=== PATIENT | female | born 1990 | race Caucasian/White ===

== ENCOUNTER → 2020-11-19 15:36 | Outpatient (BNVA) | payer SELFPAY | PROVIDERS: Family Provider Nurse Practitioner; Visit Provider Nurse Practitioner Family | DX: R39.9 Unspecified symptoms and signs involving the genitourinary system (principal); N30.00 Acute cystitis without hematuria | CPT/HCPCS: 81000 ==

== ENCOUNTER 2021-04-07 19:13 | Inpatient (IN) | payer SELFPAY ==
[2021-04-07 19:19] VITALS: BP 92/67; PULSE 114; RESP 18; TEMP 37.1; O2SAT 98; BMI 15.7
--- NOTE | 2021-04-07 20:37 | CTR_ITS ---
PROCEDURE INFORMATION: Exam: CT Abdomen And Pelvis With Contrast Exam date and time: 04/07/2021 8:37 PM Age: 30 years old Clinical indication: Abdominal pain; Generalized; Patient HX: Diffuse abd pain x 2 days; Additional info: Abdominal pain x 2 days TECHNIQUE: Imaging protocol: Computed tomography of the abdomen and pelvis with contrast. Radiation optimization: All CT scans at this facility use at least one of these dose optimization techniques: automated exposure control; mA and/or kV adjustment per patient size (includes targeted exams where dose is matched to clinical indication); or iterative reconstruction. Contrast material: OMNI 300; Contrast volume: 75 ml; Contrast route: INTRAVENOUS (IV); COMPARISON: No relevant prior studies available. RADIATION DOSE METRICS: Total DLP (mGy-cm): 699.34 FINDINGS: Lungs: The lung bases are clear. Liver: Unremarkable. Gallbladder and bile ducts: No definite gallbladder abnormality by CT. No biliary tree dilation. Pancreas: Unremarkable. Spleen: Unremarkable. Adrenal glands: Unremarkable. Kidneys and ureters: No hydronephrosis of either kidney. No visible ureteral calculus. No perinephric fluid. The kidneys enhance homogeneously. Stomach and bowel: There is dilation of much of the small bowel. Small bowel is dilated up to about 3 cm in diameter. The appearance raises suspicion for a distal small bowel obstruction, although an adynamic ileus is not excluded. Clinical correlation will be helpful. Possibility of mild mucosal/wall thickening involving some distal small bowel loops. While this could well be a transient appearance, this might also represent some type of gastroenteritis, inflammatory bowel disease, or other inflammatory bowel process/enteritis. Please correlate clinically. The stomach appears somewhat distended at the time of scanning. Please correlate clinically. There are no CT findings to strongly suggest diverticulitis. Appendix: The appendix is possibly identified, and there are no strongly suspicious findings for appendicitis. No definite pericecal inflammatory changes are seen. Intraperitoneal space: No free intraperitoneal air, or ascites. Vasculature: No evidence for abdominal aortic aneurysm. Lymph nodes: No retroperitoneal adenopathy. Urinary bladder: Possibly some mild diffuse urinary bladder wall thickening. However, evaluation is limited, as the bladder is almost empty. While nonspecific, this could indicate evidence for cystitis. Please correlate clinically. Reproductive: Essentially unremarkable for age. Bones/joints: No significant acute finding. Soft tissues: No significant acute finding. CT/CT abdomen pelvis w con* [id number] IMPRESSION: 1. Findings suspicious for possible small bowel obstruction, see above details/ discussion. 2. Possible mild mucosa/wall thickening in some small bowel loops, see above. 3. Somewhat distended stomach. 4. Possible mild urinary bladder wall thickening, see above. 5. No findings to suggest appendicitis. 6. Other findings discussed above. Radiation Dose CTDIVOL = (mGy): DLP = 699.34 (mGy-cm)
--- NOTE | 2021-04-07 20:38 | ED_ITS ---
Documented by User: LAUREN Vaz 04/07/21 20:39 HPI - Abdominal Pain General: Chief Complaint: ER Hold Stated Complaint: ABD Pain\N\V Ann-Marie Time Seen by Provider: 04/07/21 19:20 History of Present Illness: HPI narrative: Patient states she has had severe abdominal pain since yesterday. Said she had a pretty difficult menstrual cycle in the last week but bleeding stopped and she thought that this pain would go away. Patient says pain goes across her lower abdomen into her left and right flank. Has been nauseated. Denies fever has had some chills. MD elicited complaint: abdominal pain Pertinent past history: other (Ruptured ovarian cyst) Onset (ago): day(s) Pain Consistency: constant Location: Diffuse Severity: severe Quality: cramping and aching Radiation: bilateral flank Relieving factors: nothing Associated Symptoms: Reports diarrhea and nausea; Denies chills and fever(s) Related Data: Date of Last Menstrual Period: 11/11/20 Review of Systems Const: Denies: fever(s), chills or body aches Eyes: Denies: change in vision or blurry vision ENMT: Denies: throat pain or nasal congestion Card: Denies: chest pain or dyspnea on exertion Resp: Denies: dyspnea, productive cough or non-productive cough GI: Reports: abdominal pain, nausea and diarrhea Musc: Denies: extremity pain Skin/Breast: Denies: rash Neuro: Denies: headache(s) Psych: Denies: anxiety or depression Kana/Lymph: Denies: easy bruising [facility] Female Reproductive History: Date of last menstrual period: 11/11/20 Physical Exam Const: COMMON NORMALS: no acute distress, average body habitus and patient oriented x3 HENMT: COMMON NORMALS: normocephalic HEAD & SCALP: normal to inspection and normocephalic FACE & SINUS: normal facial exam Eye: COMMON NORMALS: conjunctivae normal GENERAL EYE: appearance normal, both eyes and all related structures CONJUNCTIVA: Yes conjunctivae normal Neck/C-Spine: COMMON NORMALS: no JVD Chest: COMMONS NORMALS: normal inspection of the chest Resp: COMMON NORMALS: normal respiratory effort and clear to auscultation bilaterally AUSCULTATION: clear to auscultation bilaterally Cardio: COMMON NORMALS: no JVD, regular rate and regular rhythm RATE: regular rate RHYTHM: regular rhythm GI: AUSCULTATION: Yes Hypoactive bowel sounds present PALPATION: Yes Tenderness to palpation present (GI) Details: LLQ and RLQ and Yes Guarding due to palpation present (GI) Extremity: COMMON NORMALS: normal to inspection and full ROM Neuro: COMMON NORMALS: patient oriented x3 Course Vital Signs: Vital signs: Vital Signs Temperature 98.2 F 04/09/21 13:56 Pulse Rate 63 04/09/21 13:56 Respiratory Rate 18 04/09/21 13:56 Blood Pressure 110/72 04/09/21 13:56 Pulse Oximetry 100 04/09/21 13:56 MDM - Abdominal Pain Lab Data: Labs: Lab Results 04/07/21 04/07/21 04/07/21 00:22 00:22 20:55 WBC 31.5 10^3/uL H* 1 0^3/uL (4.0-10.0) RBC 4.87 10^6/uL 10^6 /uL (4.1-5.3) Hgb 15.3 g/dL g/dL (11.5-15.3) Hct 45.5 % % (37.0-47.0) MCV 93.4 fl fl (81-99) MCH 31.4 pg pg (28.0-34.0) MCHC 33.6 g/dL g/dL (30.0-36.0) RDW 12.5 % % (12.1-15.1) Plt Count 320 10^3/cmm 10^3 /cmm (130-400) MPV 11.4 fL H fL (7.4-10.4) Neut % (Auto) 89.1 % % Lymph % (Auto) 5.5 % % [facility] % (Auto) 3.9 % % Eos % (Auto) 0.3 % % Baso % (Auto) 0.3 % % Neut # (Auto) 28.06 10^3/uL H 1 0^3/uL (1.8-7.7) Lymph # (Auto) 1.7 10^3/uL 10^3/ uL (0.8-4.8) [facility] # (Auto) 1.2 10^3/uL H 10^ 3/uL (0.2-0.9) Eos # (Auto) 0.1 10^3/uL 10^3/ uL (0.0-0.8) Baso # (Auto) 0.1 10^3/uL 10^3/ uL (0.0-0.1) Nucleated RBC % (a uto) 0 % % Nucleated RBCs # 0.0 /100WBC /100W BC PT INR APTT Sodium Potassium Chloride Carbon Dioxide Anion Gap BUN Creatinine GFR Calculation Glucose Calculated Osmolal ity Lactic Acid 1.2 mmol/L mmol/L (0.5-2.2) Lactate Calcium Phosphorus Magnesium Total Bilirubin AST ALT Alkaline Phosphata se C-Reactive Protein Total Protein Albumin Globulin Lipase Procalcitonin 2.94 ng/mL H ng/m L (0-0.5) HCG, Qual Urine Color Urine Appearance Urine pH Ur Specific Gravit y Urine Protein Urine Glucose (UA) Urine Ketones Urine Blood Urine Nitrate Urine Bilirubin Urine Urobilinogen Ur Leukocyte Varsha ase Urine RBC Urine WBC Ur Squamous Epith Cells Amorphous Sediment Urine Bacteria 04/07/21 04/07/21 04/07/21 20:55 20:55 20:55 WBC RBC Hgb Hct MCV MCH MCHC RDW Plt Count MPV Neut % (Auto) Lymph % (Auto) [facility] % (Auto) Eos % (Auto) Baso % (Auto) Neut # (Auto) Lymph # (Auto) [facility] # (Auto) Eos # (Auto) Baso # (Auto) Nucleated RBC % (a uto) Nucleated RBCs # PT INR APTT Sodium 133 mmol/L L mmol /L (136-145) Potassium 3.9 mmol/L mmol/L (3.5-5.1) Chloride 95 mmol/L L mmol/ L (98-107) Carbon Dioxide 20 mmol/L L mmol/ L (22-29) Anion Gap 21.9 H (5-19) BUN 30 mg/dL H mg/dL (6-20) Creatinine 2.0 mg/dL H mg/dL (0.5-0.9) GFR Calculation 29.3 mL/min L mL/ min (90-130) Glucose 95 mg/dL mg/dL (65-115) Calculated Osmolal ity 282 mOsm/kg L mOs m/kg (285-295) Lactic Acid Lactate 1.4 mmol/L mmol/L (0.5-2.2) Calcium 10.0 mg/dL mg/dL (8.5-10.5) Phosphorus Magnesium Total Bilirubin 0.2 mg/dL mg/dL (0.15-1.2) AST 11 U/L U/L (0-32) ALT 8 U/L U/L (0-33) Alkaline Phosphata se 86 IU/L IU/L (35-105) C-Reactive Protein 417.6 mg/L H mg/L (0.0-4.9) Total Protein 8.7 g/dL g/dL (6.6-8.7) Albumin 4.1 g/dL g/dL (3.5-5.2) Globulin 4.6 g/dL g/dL (1.3-4.6) Lipase 12 U/L L U/L (13-60) Procalcitonin HCG, Qual Negative (Negative) Urine Color Urine Appearance Urine pH Ur Specific Gravit y Urine Protein Urine Glucose (UA) Urine Ketones Urine Blood Urine Nitrate Urine Bilirubin Urine Urobilinogen Ur Leukocyte Varsha ase Urine RBC Urine WBC Ur Squamous Epith Cells Amorphous Sediment Urine Bacteria 04/07/21 04/08/21 04/08/21 21:16 03:46 03:46 WBC 21.5 10^3/uL H 10 ^3/uL (4.0-10.0) RBC 3.78 10^6/uL L 10 ^6/uL (4.1-5.3) Hgb 12.0 g/dL g/dL (11.5-15.3) Hct 35.9 % L % (37.0-47.0) MCV 95.0 fl fl (81-99) MCH 31.7 pg pg (28.0-34.0) MCHC 33.4 g/dL g/dL (30.0-36.0) RDW 12.5 % % (12.1-15.1) Plt Count 217 10^3/cmm D 1 0^3/cmm (130-400) MPV 10.9 fL H fL (7.4-10.4) Neut % (Auto) 85.4 % % Lymph % (Auto) 6.6 % % [facility] % (Auto) 5.5 % % Eos % (Auto) 1.3 % % Baso % (Auto) 0.2 % % Neut # (Auto) 18.40 10^3/uL H 1 0^3/uL (1.8-7.7) Lymph # (Auto) 1.4 10^3/uL 10^3/ uL (0.8-4.8) [facility] # (Auto) 1.2 10^3/uL H 10^ 3/uL (0.2-0.9) Eos # (Auto) 0.3 10^3/uL 10^3/ uL (0.0-0.8) Baso # (Auto) 0.0 10^3/uL 10^3/ uL (0.0-0.1) Nucleated RBC % (a uto) 0 % % Nucleated RBCs # 0.0 /100WBC /100W BC PT 14.80 SECONDS SEC ONDS (12.1-14.9) INR 1.13 (0.8-1.2) APTT 30.6 SECONDS SECO NDS (23.9-36.7) Sodium Potassium Chloride Carbon Dioxide Anion Gap BUN Creatinine GFR Calculation Glucose Calculated Osmolal ity Lactic Acid Lactate Calcium Phosphorus Magnesium Total Bilirubin AST ALT Alkaline Phosphata se C-Reactive Protein Total Protein Albumin Globulin Lipase Procalcitonin HCG, Qual Urine Color Yellow (Yellow) Urine Appearance Clear (CLEAR) Urine pH 5 (5-7) Ur Specific Gravit y 1.025 (1.005-1.030) Urine Protein Trace (Negative) Urine Glucose (UA) Trace H (Normal) Urine Ketones 1+ H (Negative) Urine Blood 2+ H (Negative) Urine Nitrate Negative (Negative) Urine Bilirubin 1+ H (Negative) Urine Urobilinogen Norm mg/dL mg/dL (Negative) Ur Leukocyte Varsha ase Trace H (Negative) Urine RBC 0-4 /hpf H /hpf (0-2) Urine WBC 15-25 /hpf H /hpf (0-5) Ur Squamous Epith Cells 10-15 /hpf H /hpf (0-5) Amorphous Sediment Not Reportable Urine Bacteria 2+ /hpf H /hpf (NONE) 04/08/21 03:46 WBC RBC Hgb Hct MCV MCH MCHC RDW Plt Count MPV Neut % (Auto) Lymph % (Auto) [facility] % (Auto) Eos % (Auto) Baso % (Auto) Neut # (Auto) Lymph # (Auto) [facility] # (Auto) Eos # (Auto) Baso # (Auto) Nucleated RBC % (a uto) Nucleated RBCs # PT INR APTT Sodium 135 mmol/L L mmol /L (136-145) Potassium 3.7 mmol/L mmol/L (3.5-5.1) Chloride 102 mmol/L mmol/L (98-107) Carbon Dioxide 21 mmol/L L mmol/ L (22-29) Anion Gap 15.7 (5-19) BUN 21 mg/dL H mg/dL (6-20) Creatinine 1.1 mg/dL H mg/dL (0.5-0.9) GFR Calculation 58.3 mL/min L mL/ min (90-130) Glucose 96 mg/dL mg/dL (65-115) Calculated Osmolal ity 283 mOsm/kg L mOs m/kg (285-295) Lactic Acid Lactate Calcium 8.0 mg/dL L mg/dL (8.5-10.5) Phosphorus 3.3 mg/dL mg/dL (2.5-4.5) Magnesium 1.8 mg/dL mg/dL (1.7-2.3) Total Bilirubin 0.2 mg/dL mg/dL (0.15-1.2) AST 7 U/L U/L (0-32) ALT < 5 U/L U/L (0-33) Alkaline Phosphata se 58 IU/L IU/L (35-105) C-Reactive Protein Total Protein 6.4 g/dL L D g/dL (6.6-8.7) Albumin 3.2 g/dL L g/dL (3.5-5.2) Globulin 3.2 g/dL g/dL (1.3-4.6) Lipase Procalcitonin HCG, Qual Urine Color Urine Appearance Urine pH Ur Specific Gravit y Urine Protein Urine Glucose (UA) Urine Ketones Urine Blood Urine Nitrate Urine Bilirubin Urine Urobilinogen Ur Leukocyte Varsha ase Urine RBC Urine WBC Ur Squamous Epith Cells Amorphous Sediment Urine Bacteria Discharge Plan Discharge Patient Disposition: Admitted As Inpatient Admit Provider: Reji Hayden Clinical Impression: Small bowel obstruction Condition: Stable Discharge Diet: Advance as tolerated Discharge Activity: Resume usual activity Sign Out Sign Out Data: Patient Sign Out occurred on 04/08/21 at 00:29. Patient's care was discussed, and care was transferred from to Mehdi Ramires MD. Coding Level of Care Code ED Apartment Rental Clerk for Chg Fwd Exam Comprehensive Documented by User: Mehdi Ramires MD 04/12/21 09:28 HPI - Abdominal Pain General: Chief Complaint: ER Hold Stated Complaint: ABD Pain\N\V Ann-Marie Time Seen by Provider: 04/07/21 19:20 Course Vital Signs: Vital signs: Vital Signs Temperature 98.2 F 04/09/21 13:56 Pulse Rate 63 04/09/21 13:56 Respiratory Rate 18 04/09/21 13:56 Blood Pressure 110/72 04/09/21 13:56 Pulse Oximetry 100 04/09/21 13:56 MDM - Abdominal Pain MDM Narrative: Medical decision making narrative: I discussed this case with Darvin Krishnan NP. I personally reevaluated the patient and agree as documented, I reviewed imaging and labs. I discussed the case with general surgery on-call, they were concerned regarding somewhat out of proportion leukocytosis and requested involvement of medicine team. Mehdi Ramires MD Emergency Medicine Lab Data: Labs: Lab Results 04/07/21 04/07/21 04/07/21 00:22 00:22 20:55 WBC 31.5 10^3/uL H* 1 0^3/uL (4.0-10.0) RBC 4.87 10^6/uL 10^6 /uL (4.1-5.3) Hgb 15.3 g/dL g/dL (11.5-15.3) Hct 45.5 % % (37.0-47.0) MCV 93.4 fl fl (81-99) MCH 31.4 pg pg (28.0-34.0) MCHC 33.6 g/dL g/dL (30.0-36.0) RDW 12.5 % % (12.1-15.1) Plt Count 320 10^3/cmm 10^3 /cmm (130-400) MPV 11.4 fL H fL (7.4-10.4) Neut % (Auto) 89.1 % % Lymph % (Auto) 5.5 % % [facility] % (Auto) 3.9 % % Eos % (Auto) 0.3 % % Baso % (Auto) 0.3 % % Neut # (Auto) 28.06 10^3/uL H 1 0^3/uL (1.8-7.7) Lymph # (Auto) 1.7 10^3/uL 10^3/ uL (0.8-4.8) [facility] # (Auto) 1.2 10^3/uL H 10^ 3/uL (0.2-0.9) Eos # (Auto) 0.1 10^3/uL 10^3/ uL (0.0-0.8) Baso # (Auto) 0.1 10^3/uL 10^3/ uL (0.0-0.1) Nucleated RBC % (a uto) 0 % % Nucleated RBCs # 0.0 /100WBC /100W BC PT INR APTT Sodium Potassium Chloride Carbon Dioxide Anion Gap BUN Creatinine GFR Calculation Glucose Calculated Osmolal ity Lactic Acid 1.2 mmol/L mmol/L (0.5-2.2) Lactate Calcium Phosphorus Magnesium Total Bilirubin AST ALT Alkaline Phosphata se C-Reactive Protein Total Protein Albumin Globulin Lipase Procalcitonin 2.94 ng/mL H ng/m L (0-0.5) HCG, Qual Urine Color Urine Appearance Urine pH Ur Specific Gravit y Urine Protein Urine Glucose (UA) Urine Ketones Urine Blood Urine Nitrate Urine Bilirubin Urine Urobilinogen Ur Leukocyte Varsha ase Urine RBC Urine WBC Ur Squamous Epith Cells Amorphous Sediment Urine Bacteria 04/07/21 04/07/21 04/07/21 20:55 20:55 20:55 WBC RBC Hgb Hct MCV MCH MCHC RDW Plt Count MPV Neut % (Auto) Lymph % (Auto) [facility] % (Auto) Eos % (Auto) Baso % (Auto) Neut # (Auto) Lymph # (Auto) [facility] # (Auto) Eos # (Auto) Baso # (Auto) Nucleated RBC % (a uto) Nucleated RBCs # PT INR APTT Sodium 133 mmol/L L mmol /L (136-145) Potassium 3.9 mmol/L mmol/L (3.5-5.1) Chloride 95 mmol/L L mmol/ L (98-107) Carbon Dioxide 20 mmol/L L mmol/ L (22-29) Anion Gap 21.9 H (5-19) BUN 30 mg/dL H mg/dL (6-20) Creatinine 2.0 mg/dL H mg/dL (0.5-0.9) GFR Calculation 29.3 mL/min L mL/ min (90-130) Glucose 95 mg/dL mg/dL (65-115) Calculated Osmolal ity 282 mOsm/kg L mOs m/kg (285-295) Lactic Acid Lactate 1.4 mmol/L mmol/L (0.5-2.2) Calcium 10.0 mg/dL mg/dL (8.5-10.5) Phosphorus Magnesium Total Bilirubin 0.2 mg/dL mg/dL (0.15-1.2) AST 11 U/L U/L (0-32) ALT 8 U/L U/L (0-33) Alkaline Phosphata se 86 IU/L IU/L (35-105) C-Reactive Protein 417.6 mg/L H mg/L (0.0-4.9) Total Protein 8.7 g/dL g/dL (6.6-8.7) Albumin 4.1 g/dL g/dL (3.5-5.2) Globulin 4.6 g/dL g/dL (1.3-4.6) Lipase 12 U/L L U/L (13-60) Procalcitonin HCG, Qual Negative (Negative) Urine Color Urine Appearance Urine pH Ur Specific Gravit y Urine Protein Urine Glucose (UA) Urine Ketones Urine Blood Urine Nitrate Urine Bilirubin Urine Urobilinogen Ur Leukocyte Varsha ase Urine RBC Urine WBC Ur Squamous Epith Cells Amorphous Sediment Urine Bacteria 04/07/21 04/08/21 04/08/21 21:16 03:46 03:46 WBC 21.5 10^3/uL H 10 ^3/uL (4.0-10.0) RBC 3.78 10^6/uL L 10 ^6/uL (4.1-5.3) Hgb 12.0 g/dL g/dL (11.5-15.3) Hct 35.9 % L % (37.0-47.0) MCV 95.0 fl fl (81-99) MCH 31.7 pg pg (28.0-34.0) MCHC 33.4 g/dL g/dL (30.0-36.0) RDW 12.5 % % (12.1-15.1) Plt Count 217 10^3/cmm D 1 0^3/cmm (130-400) MPV 10.9 fL H fL (7.4-10.4) Neut % (Auto) 85.4 % % Lymph % (Auto) 6.6 % % [facility] % (Auto) 5.5 % % Eos % (Auto) 1.3 % % Baso % (Auto) 0.2 % % Neut # (Auto) 18.40 10^3/uL H 1 0^3/uL (1.8-7.7) Lymph # (Auto) 1.4 10^3/uL 10^3/ uL (0.8-4.8) [facility] # (Auto) 1.2 10^3/uL H 10^ 3/uL (0.2-0.9) Eos # (Auto) 0.3 10^3/uL 10^3/ uL (0.0-0.8) Baso # (Auto) 0.0 10^3/uL 10^3/ uL (0.0-0.1) Nucleated RBC % (a uto) 0 % % Nucleated RBCs # 0.0 /100WBC /100W BC PT 14.80 SECONDS SEC ONDS (12.1-14.9) INR 1.13 (0.8-1.2) APTT 30.6 SECONDS SECO NDS (23.9-36.7) Sodium Potassium Chloride Carbon Dioxide Anion Gap BUN Creatinine GFR Calculation Glucose Calculated Osmolal ity Lactic Acid Lactate Calcium Phosphorus Magnesium Total Bilirubin AST ALT Alkaline Phosphata se C-Reactive Protein Total Protein Albumin Globulin Lipase Procalcitonin HCG, Qual Urine Color Yellow (Yellow) Urine Appearance Clear (CLEAR) Urine pH 5 (5-7) Ur Specific Gravit y 1.025 (1.005-1.030) Urine Protein Trace (Negative) Urine Glucose (UA) Trace H (Normal) Urine Ketones 1+ H (Negative) Urine Blood 2+ H (Negative) Urine Nitrate Negative (Negative) Urine Bilirubin 1+ H (Negative) Urine Urobilinogen Norm mg/dL mg/dL (Negative) Ur Leukocyte Varsha ase Trace H (Negative) Urine RBC 0-4 /hpf H /hpf (0-2) Urine WBC 15-25 /hpf H /hpf (0-5) Ur Squamous Epith Cells 10-15 /hpf H /hpf (0-5) Amorphous Sediment Not Reportable Urine Bacteria 2+ /hpf H /hpf (NONE) 04/08/21 03:46 WBC RBC Hgb Hct MCV MCH MCHC RDW Plt Count MPV Neut % (Auto) Lymph % (Auto) [facility] % (Auto) Eos % (Auto) Baso % (Auto) Neut # (Auto) Lymph # (Auto) [facility] # (Auto) Eos # (Auto) Baso # (Auto) Nucleated RBC % (a uto) Nucleated RBCs # PT INR APTT Sodium 135 mmol/L L mmol /L (136-145) Potassium 3.7 mmol/L mmol/L (3.5-5.1) Chloride 102 mmol/L mmol/L (98-107) Carbon Dioxide 21 mmol/L L mmol/ L (22-29) Anion Gap 15.7 (5-19) BUN 21 mg/dL H mg/dL (6-20) Creatinine 1.1 mg/dL H mg/dL (0.5-0.9) GFR Calculation 58.3 mL/min L mL/ min (90-130) Glucose 96 mg/dL mg/dL (65-115) Calculated Osmolal ity 283 mOsm/kg L mOs m/kg (285-295) Lactic Acid Lactate Calcium 8.0 mg/dL L mg/dL (8.5-10.5) Phosphorus 3.3 mg/dL mg/dL (2.5-4.5) Magnesium 1.8 mg/dL mg/dL (1.7-2.3) Total Bilirubin 0.2 mg/dL mg/dL (0.15-1.2) AST 7 U/L U/L (0-32) ALT < 5 U/L U/L (0-33) Alkaline Phosphata se 58 IU/L IU/L (35-105) C-Reactive Protein Total Protein 6.4 g/dL L D g/dL (6.6-8.7) Albumin 3.2 g/dL L g/dL (3.5-5.2) Globulin 3.2 g/dL g/dL (1.3-4.6) Lipase Procalcitonin HCG, Qual Urine Color Urine Appearance Urine pH Ur Specific Gravit y Urine Protein Urine Glucose (UA) Urine Ketones Urine Blood Urine Nitrate Urine Bilirubin Urine Urobilinogen Ur Leukocyte Varsha ase Urine RBC Urine WBC Ur Squamous Epith Cells Amorphous Sediment Urine Bacteria Discharge Plan Discharge Patient Disposition: Admitted As Inpatient Admit Provider: Reji Hayden Clinical Impression: Small bowel obstruction Condition: Stable Discharge Diet: Advance as tolerated Discharge Activity: Resume usual activity Sign Out Sign Out Data: Patient Sign Out occurred on 04/08/21 at 00:29. Patient's care was discussed, and care was transferred from to Mehdi Ramires MD. Coding Level of Care Code ED Apartment Rental Clerk for Chg Fwd Exam Comprehensive
[2021-04-07 20:48] VITALS: BP 110/79; PULSE 74; RESP 20; O2SAT 99
[2021-04-07 21:06] LABS: Basophils # 0.1 10^3/uL (0.0-0.1); Basophils % 0.3 %; Eosinophils # 0.1 10^3/uL (0.0-0.8); Eosinophils % 0.3 %; Hematocrit 45.5 % (37.0-47.0); Hemoglobin 15.3 g/dL (11.5-15.3); Lymphocytes # 1.7 10^3/uL (0.8-4.8); Lymphocytes % 5.5 %; Mean Corpuscular HGB Conc 33.6 g/dL (30.0-36.0); Mean Corpuscular Hemoglobin 31.4 pg (28.0-34.0); Mean Corpuscular Volume 93.4 fl (81-99); Mean Platelet Volume 11.4 fL (7.4-10.4); Monocytes # 1.2 10^3/uL (0.2-0.9); Monocytes % 3.9 %; Neutrophils # 28.06 10^3/uL (1.8-7.7); Neutrophils % 89.1 %; Nucleated Red Blood Cells % 0 %; Platelet Count 320 10^3/cmm (130-400); Red Blood Count 4.87 10^6/uL (4.1-5.3); Red Cell Distribution Width 12.5 % (12.1-15.1)
[2021-04-07 21:13] LABS: White Blood Count 31.5 10^3/uL (4.0-10.0)
[2021-04-07 21:28] LABS: HCG, Serum Qual Negative (Negative)
[2021-04-07 21:33] LABS: Alanine Aminotransferase 8 U/L (0-33); Albumin Level 4.1 g/dL (3.5-5.2); Alkaline Phosphatase 86 IU/L (35-105); Anion Gap 21.9 (5-19); Aspartate Amino Transferase 11 U/L (0-32); Blood Urea Nitrogen 30 mg/dL (6-20); Carbon Dioxide 20 mmol/L (22-29); Chloride 95 mmol/L (98-107); Creatinine Clr Calc Pharmacy 30.6303; Globulin 4.6 g/dL (1.3-4.6); Glomerular Filtration Rate 29.3 mL/min (90-130); Glucose 95 mg/dL (65-115); Lipase 12 U/L (13-60); Osmolality Calculated 282 mOsm/kg (285-295); Potassium 3.9 mmol/L (3.5-5.1); Sodium 133 mmol/L (136-145); Total Bilirubin 0.2 mg/dL (0.15-1.2); Total Protein 8.7 g/dL (6.6-8.7)
[2021-04-07 21:34] LABS: Lactate (Lactic Acid level) 1.4 mmol/L (0.5-2.2)
[2021-04-07] MEDS: iohexol 300 mg/mL 100 mL Btl IV (21:41)
[2021-04-07 21:51] LABS: C Reactive Protein 417.6 mg/L (0.0-4.9)
[2021-04-07] MEDS: ondansetron 2 mg/ML SDV 2 mL 4 MG IVP (22:08)
[2021-04-07] MEDS: morphine 4 mg/mL SDV 1 mL IVP (22:10)
[2021-04-07] MEDS: sodium chloride 0.9% 1,000 ML 999 ML IV (22:12)
[2021-04-07 22:14] VITALS: BP 111/80; PULSE 72; O2SAT 98
[2021-04-07 22:22] LABS: Bilirubin Urine 1+ (Negative); Blood Urine 2+ (Negative); Glucose Urine UA Trace (Normal); Ketones Urine 1+ (Negative); Nitrate Urine Negative (Negative); Protein Urine Trace (Negative); Specific Gravity, Urine 1.025 (1.005-1.030); Urine Appearance Clear (CLEAR); Urine Color Yellow (Yellow); pH Urine 5 (5-7)
[2021-04-07 22:23] LABS: Add Urine Microscopic? YES; Leukocyte Esterase Urine Trace (Negative); RBC Urine 0-4 /hpf (0-2); Urobilinogen Urine Norm (Negative)
[2021-04-07 22:24] LABS: Add Urine Culture? Yes; Bacteria Urine 2+ /hpf; WBC Urine 15-25 /hpf (0-5)
[2021-04-07] MEDS: HYDROmorphone 1 mg/mL INJ 1 mL IVP (22:52)
--- NOTE | 2021-04-07 23:34 | PM.HP ---
Providers/Chief Complaint Chief Complaint: ABD Pain\N\V Ann-Marie History of Present Illness Yolis Weir is a 30 year old female with no significant past medical history who is presenting to emergency room with complaints of generalized abdominal pain, nausea, vomiting, diarrhea which started yesterday. The patient initially thought that her symptoms are related to her menstrual period. However they became so severe that she decided to come to the emergency room. She reports multiple episodes of watery diarrhea. No blood. She reports several episodes of vomiting. The pain is generalized and severe. Described as cramps. Denies similar episodes in the past. She denies associated fever or chills, dysuria, back pain, vaginal discharge, pain or bleeding, runny nose or sore throat, chest pain, shortness of breath, cough. Review of Systems General: Reports: 10 or more systems reviewed and unremarkable except in HPI and below Medications/Allergies Home Medications Medication Instructions Recorded Confirmed Last Taken Type No Known Home Medications 11/19/20 11/19/20 Unknown History ciprofloxacin HCl 250 mg tablet 250 mg PO BID 5 Days #10 tab 11/19/20 11/19/20 Unknown Rx Allergies Allergy/AdvReac Type Severity Reaction Status Date / Time No Known Allergies Allergy Unverified 11/19/20 15:35 PFSH Acute Female Reproductive History: Date of last menstrual period: 11/11/20 Vitals/I&O/Wt Last Vital Signs Temp 98.7 F 04/07/21 19:19 Pulse 72 04/07/21 22:14 Resp 20 H 04/07/21 20:48 BP 111/80 04/07/21 22:14 Pulse Ox 98 04/07/21 22:14 Weight last 48 hrs Weight 47.174 kg Physical Exam Narrative: EXAM NARRATIVE: The patient is awake alert and oriented. Mild distress secondary to the pain. Mood and affect are appropriate. Responses are adequate. Skin is warm and dry. Moist mucous membranes Eyes PERRL, extraocular muscle intact. No icterus. Neck supple. No JVD Lungs are clear to auscultation bilaterally. No wheezes or crackles. No respiratory distress. Heart S1, S2, regular Abdomen is soft, no guarding or distention, tender on palpation in all 4 quadrants with mild rebound tenderness. Extremities no edema cyanosis or calf tenderness bilaterally Neuro examination is nonfocal. Normal speech. Data : 04/07/21 20:55 04/07/21 20:55 Other Labs: Laboratory Results WBC 31.5 10^3/uL (4.0-10.0) H* 04/07/21 20:55 RBC 4.87 10^6/uL (4.1-5.3) 04/07/21 20:55 Hgb 15.3 g/dL (11.5-15.3) 04/07/21 20:55 Hct 45.5 % (37.0-47.0) 04/07/21 20:55 MCV 93.4 fl (81-99) 04/07/21 20:55 MCH 31.4 pg (28.0-34.0) 04/07/21 20:55 MCHC 33.6 g/dL (30.0-36.0) 04/07/21 20:55 RDW 12.5 % (12.1-15.1) 04/07/21 20:55 Plt Count 320 10^3/cmm (130-400) 04/07/21 20:55 MPV 11.4 fL (7.4-10.4) H 04/07/21 20:55 Neut % (Auto) 89.1 % 04/07/21 20:55 Lymph % (Auto) 5.5 % 04/07/21 20:55 [place] % (Auto) 3.9 % 04/07/21 20:55 Eos % (Auto) 0.3 % 04/07/21 20:55 Baso % (Auto) 0.3 % 04/07/21 20:55 Neut # (Auto) 28.06 10^3/uL (1.8-7.7) H 04/07/21 20:55 Lymph # (Auto) 1.7 10^3/uL (0.8-4.8) 04/07/21 20:55 [place] # (Auto) 1.2 10^3/uL (0.2-0.9) H 04/07/21 20:55 Eos # (Auto) 0.1 10^3/uL (0.0-0.8) 04/07/21 20:55 Baso # (Auto) 0.1 10^3/uL (0.0-0.1) 04/07/21 20:55 Nucleated RBC % (auto) 0 % 04/07/21 20:55 Nucleated RBCs # 0.0 /100WBC 04/07/21 20:55 Sodium 133 mmol/L (136-145) L 04/07/21 20:55 Potassium 3.9 mmol/L (3.5-5.1) 04/07/21 20:55 Chloride 95 mmol/L (98-107) L 04/07/21 20:55 Carbon Dioxide 20 mmol/L (22-29) L 04/07/21 20:55 Anion Gap 21.9 (5-19) H 04/07/21 20:55 BUN 30 mg/dL (6-20) H 04/07/21 20:55 Creatinine 2.0 mg/dL (0.5-0.9) H 04/07/21 20:55 GFR Calculation 29.3 mL/min (90-130) L 04/07/21 20:55 Glucose 95 mg/dL (65-115) 04/07/21 20:55 Calculated Osmolality 282 mOsm/kg (285-295) L 04/07/21 20:55 Lactate 1.4 mmol/L (0.5-2.2) 04/07/21 20:55 Calcium 10.0 mg/dL (8.5-10.5) 04/07/21 20:55 Total Bilirubin 0.2 mg/dL (0.15-1.2) 04/07/21 20:55 AST 11 U/L (0-32) 04/07/21 20:55 ALT 8 U/L (0-33) 04/07/21 20:55 Alkaline Phosphatase 86 IU/L (35-105) 04/07/21 20:55 C-Reactive Protein 417.6 mg/L (0.0-4.9) H 04/07/21 20:55 Total Protein 8.7 g/dL (6.6-8.7) 04/07/21 20:55 Albumin 4.1 g/dL (3.5-5.2) 04/07/21 20:55 Globulin 4.6 g/dL (1.3-4.6) 04/07/21 20:55 Lipase 12 U/L (13-60) L 04/07/21 20:55 HCG, Qual Negative (Negative) 04/07/21 20:55 Urine Color Yellow (Yellow) 04/07/21 21:16 Urine Appearance Clear (CLEAR) 04/07/21 21:16 Urine pH 5 (5-7) 04/07/21 21:16 Ur Specific [place] 1.025 (1.005-1.030) 04/07/21 21:16 Urine Protein Trace (Negative) 04/07/21 21:16 Urine Glucose (UA) Trace (Normal) H 04/07/21 21:16 Urine Ketones 1+ (Negative) H 04/07/21 21:16 Urine Blood 2+ (Negative) H 04/07/21 21:16 Urine Nitrate Negative (Negative) 04/07/21 21:16 Urine Bilirubin 1+ (Negative) H 04/07/21 21:16 Urine Urobilinogen Norm mg/dL (Negative) 04/07/21 21:16 Ur Leukocyte Esterase Trace (Negative) H 04/07/21 21:16 Urine RBC 0-4 /hpf (0-2) H 04/07/21 21:16 Urine WBC 15-25 /hpf (0-5) H 04/07/21 21:16 Ur Squamous Epith Cells 10-15 /hpf (0-5) H 04/07/21 21:16 Amorphous Sediment Not Reportable 04/07/21 21:16 Urine Bacteria 2+ /hpf (NONE) H 04/07/21 21:16 Impressions Abdomen/Pelvis CT 04/07/21 20:37 IMPRESSION: 1. Findings suspicious for possible small bowel obstruction, see above details/ discussion. 2. Possible mild mucosa/wall thickening in some small bowel loops, see above. 3. Somewhat distended stomach. 4. Possible mild urinary bladder wall thickening, see above. 5. No findings to suggest appendicitis. 6. Other findings discussed above. Radiation Dose CTDIVOL = (mGy): DLP = 699.34 (mGy-cm) A&P Assessment and plan (1) Small bowel obstruction: Status: Acute (2) Ileus: Status: Acute (3) Acute gastroenteritis: Status: Acute (4) Leukocytosis: Status: Acute (5) Dehydration: Status: Acute (6) Acute kidney injury: Status: Acute (7) Hyponatremia: Status: Acute (8) High anion gap metabolic acidosis: Status: Acute Additional A&P Information 30-year-old female with no past medical history who is presenting with complaints of abdominal pain, vomiting, diarrhea. CT revealed possible small bowel obstruction versus ileus and associated enteritis. Etiology is unknown. CRP is very high. White blood cell count is elevated. Infection is suspected. Has associated dehydration, acute kidney injury, hyponatremia and metabolic acidosis. Surgery consult is called by ER physician. We will give her a bolus of NS and continue maintenance IV fluids. We will check her lactic acid level. We will start her on Zosyn and recheck her labs in the morning. Also ordering stool leukocytes and culture. No recent antibiotics. She will receive pain medications, nausea medications as needed. DVT prophylaxis. Teds and SCDs. The plan of care was discussed with the patient. She verbalized understanding and agreement. Attestations Medical Necessity Statement*: Based on my assessment of patient's findings and diagnosis I expect that the patient will spend more than 2 midnights in the hospital. 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
[2021-04-07 23:59] VITALS: BP 102/66; RESP 20; O2SAT 98
[2021-04-08] VITALS (7 sets, daily range): BP systolic 100–136; BP diastolic 67–84; PULSE 68–90; RESP 14–18; TEMP 37.6; O2SAT 96–99; BMI 15.7
--- NOTE | 2021-04-08 | XRR_ITS ---
PROCEDURE INFORMATION: Exam: XR Chest Exam date and time: 04/08/2021 12:06 AM Age: 30 years old Clinical indication: Device placement; Ng tube; Additional info: Ng placement TECHNIQUE: Imaging protocol: XR of the chest. Views: 1 view. COMPARISON: CT abdomen pelvis w con* [id number] 04/07/2021 9:36 PM FINDINGS: Tubes, catheters and devices: Apparent NG tube present, passing beneath the diaphragm. The tip is not included on this image, it likely lies in the proximal stomach. The side port of the tube is still in the lower esophagus. Lungs: No CHF/pulmonary edema. Visible lungs appear essentially clear. Pleural spaces: No visible pneumothorax. No definite pleural fluid. Heart/Mediastinum: Heart size is within normal limits. Bones/joints: No significant acute finding. XR/XR chest 1V portable [id number] IMPRESSION: 1. NG tube placement as above. 2. No definite pneumonia or CHF. 3. Other findings discussed above. Radiation Dose CTDIVOL = (mGy): DLP = (mGy-cm)
[2021-04-08 00:48] LABS: Lactic Sepsis W/Reflex 1.2 mmol/L (0.5-2.2)
[2021-04-08] MEDS: pantoprazole 40 mg SDV IVP (01:29)
[2021-04-08] MEDS: piperacillin-tazobactam 3.375 GM in sodium chloride 0.9% (plus) 50 ML IV ×2 (01:29→15:54)
[2021-04-08] MEDS: sodium chloride 0.9% 1,000 ML 999 ML IV (01:30)
[2021-04-08 01:57] LABS: Procalcitonin 2.94 ng/mL (0-0.5)
[2021-04-08 03:53] LABS: Basophils % 0.2 %; Eosinophils # 0.3 10^3/uL (0.0-0.8); Eosinophils % 1.3 %; Hematocrit 35.9 % (37.0-47.0); Lymphocytes # 1.4 10^3/uL (0.8-4.8); Lymphocytes % 6.6 %; Mean Corpuscular HGB Conc 33.4 g/dL (30.0-36.0); Mean Corpuscular Hemoglobin 31.7 pg (28.0-34.0); Mean Platelet Volume 10.9 fL (7.4-10.4); Monocytes # 1.2 10^3/uL (0.2-0.9); Monocytes % 5.5 %; Neutrophils % 85.4 %; Nucleated Red Blood Cells % 0 %; Platelet Count 217 10^3/cmm (130-400); Red Blood Count 3.78 10^6/uL (4.1-5.3); Red Cell Distribution Width 12.5 % (12.1-15.1); White Blood Count 21.5 10^3/uL (4.0-10.0)
[2021-04-08 04:09] LABS: INR 1.13 (0.8-1.2); Partial Thromboplastin Time 30.6 SECONDS (23.9-36.7)
[2021-04-08] MEDS: morphine 4 mg/mL SDV 1 mL 2 MG IVP (04:12)
[2021-04-08] MEDS: ondansetron 2 mg/ML SDV 2 mL 4 MG IVP ×2 (04:12→09:44)
[2021-04-08] MEDS: sodium chloride 0.9% 1,000 ML 150 ML IV (04:12)
[2021-04-08 04:23] LABS: Alanine Aminotransferase < 5 U/L (0-33); Albumin Level 3.2 g/dL (3.5-5.2); Alkaline Phosphatase 58 IU/L (35-105); Anion Gap 15.7 (5-19); Aspartate Amino Transferase 7 U/L (0-32); Blood Urea Nitrogen 21 mg/dL (6-20); Carbon Dioxide 21 mmol/L (22-29); Chloride 102 mmol/L (98-107); Creatinine Clr Calc Pharmacy 55.6915; Globulin 3.2 g/dL (1.3-4.6); Glomerular Filtration Rate 58.3 mL/min (90-130); Glucose 96 mg/dL (65-115); Magnesium 1.8 mg/dL (1.7-2.3); Osmolality Calculated 283 mOsm/kg (285-295); Phosphorus 3.3 mg/dL (2.5-4.5); Potassium 3.7 mmol/L (3.5-5.1); Sodium 135 mmol/L (136-145); Total Bilirubin 0.2 mg/dL (0.15-1.2); Total Protein 6.4 g/dL (6.6-8.7)
--- NOTE | 2021-04-08 05:58 | PM.CONSULT ---
Providers/Reason For Consult Consulting Physician/Specialty*: Abhinav Valles MD Reason for Consult*: Bowel obstruction Requesting Physician: Dr. Leroy Attending Physician: Reji Hayden History of Present Illness History of Present Illness Chief Complaint: My Tummy hurts History of present illness: Ms. Yolis Weir is a pleasant 30 year old female presented to the emergency department with worsening abdominal pain associated with nausea vomiting and diarrhea. Patient also continues to pass gas. Apparently the patient started her menstruation last Monday and last Monday started to have worsening symptoms. Patient usually develops cramps with her menstruation and pain is referred to the back. But this time her symptoms intensity were worse. No other constitutional symptoms. Patient reports history of diarrhea, nonbloody in nature, has been going on for quite some time. Patient denies history of recent travels, antibiotics, change in medications, questionable source of water, no history of sick contacts, and no history of thyroid disorders. CT scan of the abdomen and pelvis did show 1. Findings suspicious for possible small bowel obstruction, see above details/ discussion. 2. Possible mild mucosa/wall thickening in some small bowel loops, see above. 3. Somewhat distended stomach. 4. Possible mild urinary bladder wall thickening, see above. 5. No findings to suggest appendicitis. 6. Other findings discussed above. General surgery was consulted for further evaluation and management. The patient received NG tube in the ER and had about 200 mL of bilious green content. At the ER patient had a WBC count of 31.5 which trended down to 21.5. No obvious explanation of those fingers. Review of Systems General: Reports: 10 or more systems reviewed and unremarkable except in HPI and below Meds/Allergies Home Medications and Allergies Home Medications Medication Instructions Recorded Confirmed Last Taken Type ibuprofen 800 mg PO Q8H PRN 04/08/21 04/08/21 Unknown History Allergies Allergy/AdvReac Type Severity Reaction Status Date / Time No Known Allergies Allergy Verified 04/08/21 16:59 Current Medications Current Medications Generic Name Dose Route Start Last Admin Trade Name Freq PRN Reason Stop Dose Admin Sodium Chloride 1,000 mls @ 150 mls/hr 04/08/21 01:10 04/08/21 04:12 Sodium Chloride 0.9% IV 150 mls/hr .Q6H40M ARON Administration Piperacillin Sod/Tazobactam 50 mls @ 100 mls/hr 04/08/21 01:15 04/08/21 03:49 Sod 3.375 gm/ Sodium Chloride IV Infused Q8H ARON Infusion Protocol Morphine Sulfate 2 mg 04/08/21 01:10 04/08/21 04:12 Morphine 4 Mg/Ml Sdv 1 Ml IVP 2 mg Q4H PRN Administration SEVERE PAIN Ondansetron HCl 4 mg 04/08/21 01:10 04/08/21 04:12 Ondansetron 2 Mg/Ml Sdv 2 Ml IVP 4 mg Q6H PRN Administration vomiting, or N/V if npo Pantoprazole Sodium 40 mg 04/08/21 01:15 04/08/21 01:29 Pantoprazole 40 Mg Sdv IVP 40 mg Q24H ARON Administration PFSH Acute Female Reproductive History: Date of last menstrual period: 11/11/20 Vitals/I&O/Wt Last Vital Signs Temp 98.7 F 04/07/21 19:19 Pulse 78 04/08/21 05:30 Resp 18 04/08/21 05:30 BP 100/67 04/08/21 05:30 Pulse Ox 98 04/08/21 05:30 04/07/21 04/07/21 04/08/21 14:59 22:59 06:59 Intake Total 2049 Balance 2049 Weight last 48 hrs Weight 104 lb Physical Exam Const: COMMON NORMALS: no acute distress and patient oriented x3 GENERAL APPEARANCE: cooperative ORIENTATION/CONSCIOUSNESS: Yes awake, Yes oriented to person, Yes oriented to place and Yes oriented to time HENMT: COMMON NORMALS: normocephalic HEAD & SCALP: normocephalic NOSE IMAGE: 1. NG in place with bilious content Eye: COMMON NORMALS: Equal, round and reactive pupils present and no scleral icterus PUPIL: Yes Equal, round and reactive pupils present Lymph: LYMPHATIC: no lymphadenopathy noted Chest: COMMONS NORMALS: normal inspection of the chest Resp: COMMON NORMALS: normal respiratory effort and clear to auscultation bilaterally AUSCULTATION: clear to auscultation bilaterally Cardio: COMMON NORMALS: S1 normal heart sound present and S2 normal heart sound present; negative for No murmurs present (Cardio) HEART SOUNDS: S1 normal heart sound present and S2 normal heart sound present GI: COMMON NORMALS: Soft to palpation; negative for No hepatosplenomegaly present INSPECTION: Yes normal to inspection PALPATION: Yes Soft to palpation, No Firmness to palpation present (GI), No Tenderness to palpation present (GI), No Guarding due to palpation present (GI), No Rigid due to palpation and No No hepatosplenomegaly present Neuro: COMMON NORMALS: patient oriented x3 SENSORIUM/ORIENTATION: Yes oriented to person, Yes oriented to place and Yes oriented to time Psych: COMMON NORMALS: mental status grossly normal Skin: COMMON NORMALS: no rashes or lesions noted GENERAL SKIN EXAM: no rashes or lesions noted Data Micro: Micro: Microbiology 04/07/21 22:12 C.difficile Toxin B Gene (PCR) - Fin al Stool Routine Col lection A&P Assessment and plan (1) Acute gastroenteritis: After thorough history physical examination reviewing the chart and images of the CT scan of the abdomen pelvis with my personal interpretation. Do believe that the patient has an acute gastroenteritis and no evidence of bowel obstruction. No indication of surgical intervention at this point. Patient feels miserable with the NG and it is not having much output so I discontinued it myself bedside after flushing it to make sure there is no residual content. Patient had remarkable relief after the NG was discontinued We will start the patient on popsicles and ice chips and if she continues to do well we will start on clear liquid diet with the plan to discharge home tomorrow from surgery standpoint of view otherwise will defer to medical hospitalist for further care. Recommend to obtain stool studies Assurance and education All questions have been answered and all concerns have been addressed to patient's satisfaction. Status: Acute Consult Attestations Medical Necessity Statement: Per admitting service Time Spent in Patient Care: (>than 50% of time spent in counselling and/or direct pt care on unit). 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
[2021-04-08] MEDS: LORazepam 2 mg/mL INJ 1 mL 0.5 MG IVP (09:44)
[2021-04-08] MEDS: sodium chloride 0.9% 1,000 ML 75 ML IV ×2 (15:29→21:05)
[2021-04-08] MEDS: neomycin-poly-bacitracin oint 28 gm 1 APPLIC TOPICAL (18:13)
--- NOTE | 2021-04-08 19:47 | P.PN_ITS ---
Subjective Subjective: Interval history: Patient was seen and examined this morning, was complaining of discomfort due to the NG tube. Denied any abdominal pain. Her other vitals and labs have been reviewed Medications: Reviewed: Yes Vitals/I&O/Wt Last Vital Signs Temp 98.7 F 04/07/21 19:19 Pulse 90 04/08/21 09:59 Resp 14 04/08/21 09:59 BP 109/72 04/08/21 09:59 Pulse Ox 99 04/08/21 09:59 04/08/21 04/08/21 04/08/21 06:59 14:59 22:59 Intake Total 2049 1000 / 1000 50 / 1050 Balance 2049 1000 / 1000 50 / 1050 Weight last 48 hrs Weight 47.174 kg Weight 47.174 kg Physical Exam Const: COMMON NORMALS: patient oriented x3 HENMT: COMMON NORMALS: normocephalic and atraumatic HEAD & SCALP: normocephalic and atraumatic Resp: COMMON NORMALS: clear to auscultation bilaterally EFFORT & INSPECTION: Yes symmetric chest movement AUSCULTATION: clear to auscultation bilaterally Cardio: COMMON NORMALS: regular rate, regular rhythm, S1 normal heart sound present, S2 normal heart sound present, No gallops present (Cardio), No murmurs present (Cardio), No rub (Cardio) and Peripheral pulses 2+ throughout RATE: regular rate RHYTHM: regular rhythm HEART SOUNDS: S1 normal heart sound present and S2 normal heart sound present PERIPHERAL PULSES: Peripheral pulses 2+ throughout GI: COMMON NORMALS: Normal to inspection, nondistended, normoactive bowel sounds present and no masses AUSCULTATION: Yes normoactive bowel sounds RECTAL EXAM: deferred OTHER: Generalized abdominal tenderness present. No guarding no rigidity no rebound tenderness. Extremity: COMMON NORMALS: no clubbing, cyanosis or edema and no pedal edema Neuro: COMMON NORMALS: patient oriented x3 Data : 04/08/21 03:46 04/08/21 03:46 Micro: Microbiology 04/08/21 13:55 Blood Culture - Preliminary Blood SPECIMEN COLLECTED 04/08/21 13:48 Blood Culture - Preliminary Blood SPECIMEN COLLECTED 04/07/21 22:12 Stool Lactoferrin - Final Stool 04/07/21 22:12 Enteric Pathogens (PCR) - Final Stool Routine Collection C.difficile Toxin B Gene (PCR) - Final A&P Assessment and plan (1) Acute gastroenteritis: Acute gastroenteritis: Patient came in with nausea vomiting and diarrhea, as well as abdominal pain. Stool C. difficile: Is negative Stool lactoferrin:No fecal lactoferrin detected stool enteric bacterial PCR negative Blood culture Continue IV hydration NG tube has been discontinued. Advance diet as tolerated. Patient was empirically started on Zosyn will continue for now. Status: Acute (2) Acute kidney injury: Acute kidney injury prerenal Serum creatinine has normalized to baseline. Continue to monitor BMP Status: Acute (3) Small bowel obstruction: Status: Acute (4) Ileus: Status: Acute (5) Leukocytosis: Status: Acute (6) Dehydration: Status: Acute (7) Hyponatremia: Status: Acute (8) High anion gap metabolic acidosis: Status: Acute Additional A&P Information 30-year-old female with no past medical history who is presenting with complaints of abdominal pain, vomiting, diarrhea. CT revealed possible small bowel obstruction versus ileus and associated enteritis. Etiology is unknown. CRP is very high. White blood cell count is elevated. Infection is suspected. Has associated dehydration, acute kidney injury, hyponatremia and metabolic acidosis. Surgery consult is called by ER physician. We will give her a bolus of NS and continue maintenance IV fluids. We will check her lactic acid level. We will start her on Zosyn and recheck her labs in the morning. Also ordering stool leukocytes and culture. No recent antibiotics. She will receive pain medications, nausea medications as needed. DVT prophylaxis. Teds and SCDs. The plan of care was discussed with the patient. She verbalized understanding and agreement. Attestations Medical Necessity Statement*: Patient needs to be in hospital for management of acute gastroenteritis. 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
[2021-04-08] MEDS: alum-mag-hydroxide-sime 30 mL UDC PO (23:58)
[2021-04-08] MEDS: famotidine 20 mg/2 mL INJ IVP (23:59)
[2021-04-09] VITALS: BP 111/72; PULSE 90; RESP 16; TEMP 36.9; O2SAT 95
[2021-04-09] MEDS: piperacillin-tazobactam 3.375 GM in sodium chloride 0.9% (plus) 50 ML IV ×2 (00:58→08:49)
[2021-04-09] MEDS: pantoprazole 40 mg SDV IVP (02:32)
[2021-04-09 02:58] LABS: Basophils % 0.2 %; Eosinophils # 0.1 10^3/uL (0.0-0.8); Hematocrit 31.6 % (37.0-47.0); Hemoglobin 10.6 g/dL (11.5-15.3); Lymphocytes # 1.5 10^3/uL (0.8-4.8); Lymphocytes % 10.7 %; Mean Corpuscular HGB Conc 33.5 g/dL (30.0-36.0); Mean Corpuscular Hemoglobin 32.1 pg (28.0-34.0); Mean Corpuscular Volume 95.8 fl (81-99); Mean Platelet Volume 10.7 fL (7.4-10.4); Monocytes # 0.8 10^3/uL (0.2-0.9); Monocytes % 5.7 %; Neutrophils # 11.43 10^3/uL (1.8-7.7); Neutrophils % 81.7 %; Nucleated Red Blood Cells % 0 %; Platelet Count 219 10^3/cmm (130-400); Red Cell Distribution Width 12.7 % (12.1-15.1)
[2021-04-09 03:31] LABS: Alanine Aminotransferase 6 U/L (0-33); Albumin Level 2.8 g/dL (3.5-5.2); Alkaline Phosphatase 47 IU/L (35-105); Anion Gap 13.7 (5-19); Aspartate Amino Transferase 9 U/L (0-32); Blood Urea Nitrogen 13 mg/dL (6-20); Calcium 7.8 mg/dL (8.5-10.5); Carbon Dioxide 20 mmol/L (22-29); Chloride 107 mmol/L (98-107); Globulin 2.6 g/dL (1.3-4.6); Glomerular Filtration Rate 117.4 mL/min (90-130); Glucose 86 mg/dL (65-115); Osmolality Calculated 283 mOsm/kg (285-295); Potassium 3.7 mmol/L (3.5-5.1); Sodium 137 mmol/L (136-145); Total Bilirubin 0.3 mg/dL (0.15-1.2); Total Protein 5.4 g/dL (6.6-8.7)
[2021-04-09 04:00] VITALS: BP 112/73; PULSE 77; RESP 16; TEMP 36.5; O2SAT 94
[2021-04-09 08:00] VITALS: BP 113/74; PULSE 74; RESP 18; TEMP 37.2; O2SAT 99
[2021-04-09] MEDS: sodium chloride 0.9% 1,000 ML 75 ML IV (08:50)
[2021-04-09] MEDS: neomycin-poly-bacitracin oint 28 gm 1 APPLIC TOPICAL (08:51)
[2021-04-09 11:16] VITALS: BP 110/72; PULSE 63; RESP 18; TEMP 36.8; O2SAT 100
--- NOTE | 2021-04-09 12:34 | PM.PN ---
Subjective Subjective: Interval history: Patient seems to be doing well and feeling better. Tolerating p.o. intake and passing gas Medications: Reviewed: Yes Vitals/I&O/Wt Last Vital Signs Temp 98.2 F 04/09/21 11:16 Pulse 63 04/09/21 11:16 Resp 18 04/09/21 11:16 BP 110/72 04/09/21 11:16 Pulse Ox 100 04/09/21 11:16 04/08/21 04/09/21 04/09/21 22:59 06:59 14:59 Intake Total 470 / 1470 250 / 1720 1001.25 / 1001.25 Output Total 500 / 500 Balance 470 / 1470 -250 / 1220 1001.25 / 1001.25 Weight last 48 hrs Weight 104 lb Weight 104 lb Physical Exam Narrative: EXAM NARRATIVE: Patient is conscious alert oriented X3 BMI 16 Head and neck examination PERRLA no masses no cervical lymphadenopathy no jaundice Abdomen nontender nondistended soft no organomegaly guarding or rigidity/no signs of peritonitis Data : 04/09/21 02:44 04/09/21 02:44 Micro: Microbiology 04/07/21 21:16 Urine Culture - Preliminary Urine,Clean Catch 04/08/21 13:55 Blood Culture - Preliminary Blood SPECIMEN COLLECTED 04/08/21 13:48 Blood Culture - Preliminary Blood SPECIMEN COLLECTED 04/07/21 22:12 Stool Lactoferrin - Final Stool 04/07/21 22:12 Enteric Pathogens (PCR) - Final Stool Routine Collection C.difficile Toxin B Gene (PCR) - Final A&P Assessment and plan (1) Acute gastroenteritis: Advance diet slowly as tolerated Once patient feels better can be discharged home from surgical standpoint of view Return to surgery office in 2 weeks as follow-up Assurance and education All questions have been answered and all concerns have been addressed to patient's satisfaction. Status: Acute Attestations Medical Necessity Statement*: Per admitting service Time Spent in Patient Care: (>than 50% of time spent in counselling and/or direct pt care on unit). Coding Level of Care Code Acute Emergency Medicine Specialist for [facility] Diagnoses Acute gastroenteritis K52.9
--- NOTE | 2021-04-09 13:31 | PM.DCS ---
Discharge Providers Date of Admission: 04/08/21 05:56 Date of Discharge: April 09, 2021 Attending Provider at Admission: Reji Hayden Attending Provider at Discharge: Jagjit Boyle MD Diagnoses at Discharge Discharge Diagnosis (1) Acute gastroenteritis: Status: Acute Reason for Visit Reason for Visit: ABD Pain\N\V [facility] Course Hospital Course 30 year old female with no significant past medical history who is presenting to emergency room with complaints of generalized abdominal pain, nausea, vomiting, diarrhea. Previously thought it was related to menstrual cycle, but since it continued even after cycle was getting progressively worsened she decided to come to the hospital. During this hospital stay she was managed for acute gastroenteritis, severe dehydration and prerenal JESSI. Stool studies were negative: CT abdomen and pelvis was suggestive of possible small bowel obstruction, based on her clinical presentation SBO obstruction was less likely, initially NG tube was placed, which was later removed, she was tolerating diet well, had no similar abdominal pain nausea vomiting. Prerenal JESSI responded well to IV hydration, at the time of discharge serum creatinine was at the baseline. Empirically she was kept on Zosyn, no antibiotics were continued on discharge. Patient responded well to the above management and was discharged in stable condition to home. She will continue to follow surgery as an outpatient. Physical Exam Const: COMMON NORMALS: patient oriented x3 HENMT: COMMON NORMALS: normocephalic and atraumatic HEAD & SCALP: normocephalic and atraumatic Resp: COMMON NORMALS: clear to auscultation bilaterally EFFORT & INSPECTION: Yes symmetric chest movement AUSCULTATION: clear to auscultation bilaterally Cardio: COMMON NORMALS: regular rate, regular rhythm, S1 normal heart sound present, S2 normal heart sound present, No gallops present (Cardio), No murmurs present (Cardio), No rub (Cardio) and Peripheral pulses 2+ throughout RATE: regular rate RHYTHM: regular rhythm HEART SOUNDS: S1 normal heart sound present and S2 normal heart sound present PERIPHERAL PULSES: Peripheral pulses 2+ throughout GI: COMMON NORMALS: Normal to inspection, nondistended, normoactive bowel sounds present and no masses AUSCULTATION: Yes normoactive bowel sounds RECTAL EXAM: deferred Extremity: COMMON NORMALS: no clubbing, cyanosis or edema and no pedal edema Neuro: COMMON NORMALS: patient oriented x3 Discharge Data Data Completed and Pending: Completed Studies During Hospitalization Category Date Time Status CT abdomen pelvis w con* [id number] Stat Cat Scan 04/07/21 20:37 Completed XR chest 1V tamir ble [id number] Urgent Exams 04/08/21 Completed Pending at discharge Category Date Time Status Blood Culture [facility] 04/08/21 13:55 Results Complete Blood Co unt w/Auto AM LABS Lab 04/10/21 04:00 Ordered Complete Blood Co unt w/Auto AM LABS Lab 04/11/21 04:00 Ordered Comprehensive Met abolic Panel AM LA BS Lab 04/10/21 04:00 Ordered Comprehensive Met abolic Panel AM LA BS Lab 04/11/21 04:00 Ordered Urine Culture Sta t Lab 04/07/21 21:16 Results Labs from last 24 hours 04/09/21 04/09/21 02:44 02:44 WBC 14.0 H RBC 3.30 L Hgb 10.6 L Hct 31.6 L MCV 95.8 MCH 32.1 MCHC 33.5 RDW 12.7 Plt Count 219 MPV 10.7 H Neut % (Auto) 81.7 Lymph % (Auto) 10.7 [place] % (Auto) 5.7 Eos % (Auto) 1.0 Baso % (Auto) 0.2 Neut # (Auto) 11.43 H Lymph # (Auto) 1.5 [place] # (Auto) 0.8 Eos # (Auto) 0.1 Baso # (Auto) 0.0 Nucleated RBC % (a uto) 0 Nucleated RBCs # 0.0 Sodium 137 Potassium 3.7 Chloride 107 Carbon Dioxide 20 L Anion Gap 13.7 BUN 13 Creatinine 0.6 GFR Calculation 117.4 Glucose 86 Calculated Osmolal ity 283 L Calcium 7.8 L Total Bilirubin 0.3 AST 9 ALT 6 Alkaline Phosphata se 47 Total Protein 5.4 L Albumin 2.8 L Globulin 2.6 Vitals: Last Vital Signs Temp 98.2 F 04/09/21 11:16 Pulse 63 04/09/21 11:16 Resp 18 04/09/21 11:16 BP 110/72 04/09/21 11:16 Pulse Ox 100 04/09/21 11:16 Discharge Plan Discharge Patient Disposition: Home Condition: Stable Prescriptions: Continued ibuprofen 200 mg Tablet 800 mg PO Q8H PRN (Reason: Pain) RF: 0 Discharge Orders: Discharge Order (Routine); Ordered 04/09/21 Ordered By: Jagjit Boyle Referrals: Abhinav Valles MD [Physician] - 04/19/21 9:30 am (Return to surgery office in 2-week) Discharge Diet: Advance as tolerated Discharge Activity: Resume usual activity Patient Instructions: Dehydration - Adult, Opioid Safety Discharge Attestations Time Spent in Discharge Care*: less than 30 min Quality Metrics Clinical Quality Measures During this hospital stay, did patient experience: None Coding Level of Care Code Acute Chg FW DC note Exam Detailed Diagnoses Acute gastroenteritis K52.9
[2021-04-09 13:56] VITALS: BP 110/72; PULSE 63; RESP 18; TEMP 36.8; O2SAT 100
== END 2021-04-09 13:58 | disposition home or self-care (01) | DRG 392 ==
LOC: ER 04-08 00:29 → ER IP 04-08 05:56 → MEDSURG 04-08 11:14
PROVIDERS: Emergency Medicine; Nurse Practitioner Family; Admitting Provider Internal Medicine; Emergency Provider Emergency Medicine; Visit Provider Internal Medicine
DX: K52.9 Noninfective gastroenteritis and colitis, unspecified (principal); N17.9 Acute kidney failure, unspecified; E87.1 Hypo-osmolality and hyponatremia; E87.2 Acidosis; E86.0 Dehydration
CPT/HCPCS: 36415; 71045; 74177; 80053; 81001; 83605; 83630; 83690; 83735; 84100; 84145; 84703; 85025; 85610; 85730; 86140; 87040; 87086; 87493; 87506; 96361; 96374; 96375; 96376; 99285; C9113; J1170; J2060; J2270; J2405; J2543; J3490; J7030; Q9967